=== PATIENT | male | born 1975 | race Caucasian/White ===

== ENCOUNTER 2017-06-25 19:49 | Inpatient (IN) | payer SELFPAY ==
[~2017-06-25] VITALS: Ht 152.4 cm; Wt 73.1 kg
[2017-06-25 23:15] LABS: BASOPHIL % 0.2 % (0-2); PLATELET COUNT 248 x10^3mcL (130-400)
[2017-06-25 23:33] LABS: CARBON DIOXIDE 27.8 mmol/L (21-32); CHLORIDE SERUM 101 mmol/L (98-107); CREATININE SERUM 0.8 mg/dL (0.7-1.3); GFR1 > 60 mL/min; GLUCOSE SERUM 126 mg/dL (74-106); POTASSIUM SERUM 3.9 mmol/L (3.5-5.1); SODIUM SERUM 138 mmol/L (136-145)
[2017-06-25 23:37] LABS: ALBUMIN 4.1 g/dL (3.4-5.0); ALKALINE PHOSPHATASE 92 U/L (46-116); ALT/SGPT 39 U/L (16-63); AST/SGOT 22 U/L (15-37); BILIRUBIN TOTAL 0.58 mg/dL (0.20-1.00); LIPASE 98 IU/L (73-393); TOTAL PROTEIN, SERUM 7.7 g/dL (6.4-8.2)
[2017-06-26 01:24] VITALS: BP 122/61
[2017-06-26 01:25] VITALS: Ht 152.4 cm; Wt 73.1 kg
[2017-06-26 01:26] LABS: microscopic required? NO
[2017-06-26 01:30] LABS: T3 TOTAL 1.25 ng/mL
[2017-06-26 01:31] LABS: FREE T4 0.88 ng/dL (0.76-1.46); FREE THYROXINE INDEX 2.7 ug/dL (1.4-4.5); T4(THYROXINE) 8.3 ug/dL (4.7-13.3)
[2017-06-26 01:34] LABS: PHOSPHOROUS 3.3 mg/dL (2.5-4.9)
[2017-06-26 01:35] LABS: MAGNESIUM 1.9 mg/dL (1.8-2.4)
[2017-06-26 01:43] LABS: UA SPECIFIC GRAVITY <=1.005 (1.005-1.035); urine erythrocyte NEGATIVE (NEGATIVE)
[2017-06-26 01:55] LABS: AMPHETAMINE QUAL UR NONE DETECTED (NEG <=1000)
[2017-06-26 05:49] VITALS: BP 99/62
[2017-06-26 08:04] LABS: BASOPHIL % 0.1 % (0-2); PLATELET COUNT 237 x10^3mcL (130-400); RED CELL DISTRIBUTION WIDTH 14.1 % (11.5-14.5)
[2017-06-26 08:15] LABS: CALCIUM 8.5 mg/dL (8.5-10.1); CARBON DIOXIDE 28.2 mmol/L (21-32); CHLORIDE SERUM 105 mmol/L (98-107); CREATININE SERUM 0.8 mg/dL (0.7-1.3); GFR1 > 60 mL/min; GLUCOSE SERUM 112 mg/dL (74-106); POTASSIUM SERUM 3.4 mmol/L (3.5-5.1); SODIUM SERUM 139 mmol/L (136-145)
[2017-06-26 10:07] VITALS: BP 111/57
[2017-06-26 14:02] VITALS: BP 122/75
[2017-06-26 18:11] VITALS: BP 119/69
[2017-06-26 20:00] VITALS: BP 122/59
[2017-06-27 05:27] VITALS: BP 108/47
[2017-06-27 06:00] LABS: BASOPHIL % 0.2 % (0-2); PLATELET COUNT 214 x10^3mcL (130-400)
[2017-06-27 06:37] LABS: CALCIUM 8.5 mg/dL (8.5-10.1); CARBON DIOXIDE 26.3 mmol/L (21-32); CHLORIDE SERUM 104 mmol/L (98-107); CREATININE SERUM 0.9 mg/dL (0.7-1.3); GFR1 > 60 mL/min; GLUCOSE SERUM 113 mg/dL (74-106); MAGNESIUM 2.2 mg/dL (1.8-2.4); PHOSPHOROUS 3.3 mg/dL (2.5-4.9); POTASSIUM SERUM 4.1 mmol/L (3.5-5.1); SODIUM SERUM 139 mmol/L (136-145)
[2017-06-27 10:17] VITALS: BP 105/64
[2017-06-27 13:31] VITALS: BP 106/72
[2017-06-27] MEDS ORDERED: KEFLEX500 M1 PO ×2 (14:25→14:31)
[2017-06-27] MEDS ORDERED: LAC PO ×2 (14:25→14:32)
[2017-06-27 15:58] VITALS: BP 106/72
[2017-06-27 20:53] VITALS: BP 135/87
== END 2017-06-27 18:52 | disposition home or self-care (01) | DRG 343 ==
LOC: ED 19:49 → DU 06-26 00:12
PROVIDERS: Emergency Medicine; Surgery; ADMIT Family Medicine
PROC: 0DTJ4ZZ Resection of Appendix, Percutaneous Endoscopic Approach (ICD-10-PCS; principal; 2017-06-26 08:00)
DX: K35.80 Unspecified acute appendicitis (principal); R73.03 Prediabetes; N40.0 Benign prostatic hyperplasia without lower urinary tract symptoms; E87.6 Hypokalemia; E02 Subclinical iodine-deficiency hypothyroidism; E66.9 Obesity, unspecified; Z68.31 Body mass index [BMI] 31.0-31.9, adult
CPT/HCPCS: 84439; 94150; J0330; J0690; J1170; J2250; J2270; J2405; J2543; J2704; J2710; J3010; J3490; J7030; J7120